=== PATIENT | female | born 1955 | race Caucasian/White ===

== ENCOUNTER 2016-12-02 22:57 | Inpatient (IN) | payer OTHER ==
[~2016-12-02] VITALS: Ht 167.6 cm; Wt 95.3 kg
[2016-12-02 23:05] VITALS: BP_SYST 118
[2016-12-02] MEDS ORDERED: NACL 0.9% 1,000 ML IV ONE (23:15)
[2016-12-02 23:57] LABS: BASOPHILS % (AUTO) 0.5 % (0.0-2.0); EOSINOPHILS # (AUTO) 0.1 K/uL (0.0-0.4); EOSINOPHILS % (AUTO) 1.6 % (0.0-4.0); HEMOGLOBIN 10.9 g/dL (12.0-16.0); LYMPHOCYTES # (AUTO) 0.9 K/uL (1.0-5.5); LYMPHOCYTES % (AUTO) 14.3 % (20.5-51.5); MEAN CORPUSCULAR HEMOGLOBIN 33 pg (27-31); MEAN CORPUSCULAR HGB CONC 33 % (32-36); MEAN CORPUSCULAR VOLUME 100 fL (79.0-98.0); MONOCYTES # (AUTO) 0.5 K/uL (0.0-1.0); MONOCYTES % (AUTO) 7.8 % (1.7-9.3); NEUTROPHILS % (AUTO) 75.8 % (40.0-70.0); PLATELET COUNT (AUTO) 172 K/uL (130-430); RED CELL DISTRIBUTION WIDTH 12.3 % (9.0-15.0); WHITE BLOOD COUNT (AUTO) 6.5 K/uL (4.8-10.8)
[2016-12-03] VITALS (7 sets, daily range): BP systolic 102–115
[2016-12-03 00:03] LABS: CALCIUM 8.8 mg/dL (8.4-11.0); CREATININE 1.33 mg/dL (0.55-1.30); POTASSIUM 4.1 mmol/L (3.5-5.1)
[2016-12-03 00:07] LABS: ALBUMIN 3.8 g/dL (3.4-4.8); TOTAL BILIRUBIN 0.5 mg/dL (0.0-1.0); TOTAL PROTEIN, SERUM 7.5 g/dL (6.4-8.3)
[2016-12-03 00:09] LABS: INR 0.9 (0.8-1.2)
[2016-12-03 01:27] LABS: BILIRUBIN,URINE 1+ (NEGATIVE); BLOOD, URINE 2+ (NEGATIVE); CLARITY/URINE SL CLOUDY (CLEAR); COLOR,URINE YELLOW (YELLOW); GLUCOSE,URINE NEGATIVE (NEGATIVE); KETONES,URINE NEGATIVE (NEGATIVE); LEUKOCYTE ESTERASE ,URINE 2+ (NEGATIVE); NITRITE, URINE NEGATIVE (NEGATIVE); PH,URINE 5.5 (5.0-8.0); PROTEIN URINE NEGATIVE (NEGATIVE); UROBILINOGEN,URINE 0.2 (0.2-1.0)
[2016-12-03 01:38] LABS: BACTERIA,URINE MANY /HPF (None Seen); MUCUS,URINE 1+ /LPF (None Seen)
[2016-12-03] MEDS ORDERED: ACETAMINOPHEN 500 MG TABLET PO ONE (02:00)
[2016-12-03] MEDS ORDERED: LEVOFLOXACIN 500 MG/D5W 100 ML IV ONE (02:15)
[2016-12-03] MEDS ORDERED: ASPIRIN 81 MG TAB.CHEW PO ONE (02:15)
[2016-12-03] MEDS ORDERED: ACETAMINOPHEN 325 MG TABLET PO PRN (03:15)
[2016-12-03] MEDS ORDERED: LISI10TA5 PO (04:01)
[2016-12-03] MEDS ORDERED: LOVA20TA2 PO (04:01)
[2016-12-03] MEDS ORDERED: LEVO200T8 PO (04:01)
[2016-12-03] MEDS ORDERED: OMEP40CA33 PO (04:02)
[2016-12-03] MEDS ORDERED: SERT-131 PO (04:02)
[2016-12-03] MEDS ORDERED: FEBU40TA PO (04:02)
[2016-12-03] MEDS ORDERED: ERGO500043 PO (04:03)
[2016-12-03] MEDS ORDERED: ALBU8.5H8 INH (04:03)
[2016-12-03] MEDS ORDERED: FURO-150 PO (04:04)
[2016-12-03] MEDS ORDERED: HYDR-551 PO (04:05)
[2016-12-03] MEDS ORDERED: L.RH1CAP PO (04:05)
[2016-12-03] MEDS ORDERED: POTASSIUM PO (04:06)
[2016-12-03] MEDS: 0.45% NACL 1,000 ML IV SCH ×2 (04:50→17:41)
[2016-12-03] MEDS ORDERED: *LOVENOX 1MG/KG Q12H/PHARMACY XX PRN (08:45)
[2016-12-03] MEDS ORDERED: ENOXAPARIN SODIUM 100 MG/ML SYRINGE SUBCUT SCH (09:00)
[2016-12-03] MEDS ORDERED: HYDROcodone/ACETAMIN 7.5-325 MG TAB PO PRN (09:30)
[2016-12-03] MEDS: ASPIRIN 81 MG TAB.CHEW PO SCH (10:11)
[2016-12-03] MEDS: HYDROcodone/ACETAMIN 7.5-325 MG TAB PO PRN ×3 (10:13→23:41)
[2016-12-03 10:20] LABS: BASOPHILS % (AUTO) 0.5 % (0.0-2.0); EOSINOPHILS # (AUTO) 0.1 K/uL (0.0-0.4); EOSINOPHILS % (AUTO) 1.3 % (0.0-4.0); HEMATOCRIT 32.5 % (36-48); MEAN CORPUSCULAR HEMOGLOBIN 34 pg (27-31); MEAN CORPUSCULAR HGB CONC 34 % (32-36); MEAN CORPUSCULAR VOLUME 100 fL (79.0-98.0); MONOCYTES # (AUTO) 0.5 K/uL (0.0-1.0); MONOCYTES % (AUTO) 11.8 % (1.7-9.3); NEUTROPHILS # (AUTO) 2.7 K/uL (1.8-7.7); NEUTROPHILS % (AUTO) 63.4 % (40.0-70.0); PLATELET COUNT (AUTO) 167 K/uL (130-430); RED BLOOD CELL COUNT(AUTO) 3.25 MIL/uL (4.2-6.2); RED CELL DISTRIBUTION WIDTH 12.6 % (9.0-15.0); WHITE BLOOD COUNT (AUTO) 4.3 K/uL (4.8-10.8)
[2016-12-03 10:32] LABS: THYROID STIMULATING HORMONE 0.34 uIu/mL (0.36-3.74)
[2016-12-03 10:32] LABS: BLOOD GAS PH 7.353 (7.350-7.450)
[2016-12-03 10:33] LABS: ABG TOTAL HEMOGLOBIN 11.2 G/dL (12.0-18.0); BLOOD GAS BASE EXCESS 4.4 mmol/L (-3.0-3.0); BLOOD GAS COHb% 0.3 % (0.5-1.5)
[2016-12-03 10:34] LABS: BLOOD GAS HHB 20.1 % (0.0-6.0)
[2016-12-03] MEDS: SIMVASTATIN 10 MG TABLET PO SCH (17:42)
[2016-12-04 00:03] VITALS: BP_SYST 106
[2016-12-04] MEDS: 0.45% NACL 1,000 ML IV SCH ×5 (03:15→21:37)
[2016-12-04 03:43] VITALS: BP_SYST 106
[2016-12-04 07:06] LABS: ANION GAP 5 (5-15); CALCIUM 8.7 mg/dL (8.4-11.0); CHLORIDE 103 mmol/L (98-107); CREATININE 0.99 mg/dL (0.55-1.30); GLUCOSE 105 mg/dL (70-99); POTASSIUM 4.5 mmol/L (3.5-5.1); SODIUM SERUM 141 mmol/L (136-145); UREA NITROGEN, BLOOD 17 mg/dL (8-21)
[2016-12-04 07:14] LABS: BASOPHILS % (AUTO) 0.5 % (0.0-2.0); EOSINOPHILS # (AUTO) 0.1 K/uL (0.0-0.4); EOSINOPHILS % (AUTO) 2.5 % (0.0-4.0); HEMATOCRIT 31.1 % (36-48); HEMOGLOBIN 10.3 g/dL (12.0-16.0); LYMPHOCYTES # (AUTO) 1.1 K/uL (1.0-5.5); LYMPHOCYTES % (AUTO) 23.7 % (20.5-51.5); MEAN CORPUSCULAR HEMOGLOBIN 33 pg (27-31); MEAN CORPUSCULAR HGB CONC 33 % (32-36); MEAN CORPUSCULAR VOLUME 100 fL (79.0-98.0); MONOCYTES # (AUTO) 0.5 K/uL (0.0-1.0); MONOCYTES % (AUTO) 10.8 % (1.7-9.3); NEUTROPHILS % (AUTO) 62.5 % (40.0-70.0); PLATELET COUNT (AUTO) 161 K/uL (130-430); RED BLOOD CELL COUNT(AUTO) 3.11 MIL/uL (4.2-6.2); RED CELL DISTRIBUTION WIDTH 12.7 % (9.0-15.0); WHITE BLOOD COUNT (AUTO) 4.7 K/uL (4.8-10.8)
[2016-12-04] MEDS: HYDROcodone/ACETAMIN 7.5-325 MG TAB PO PRN ×2 (07:14→17:49)
[2016-12-04] MEDS: LEVOTHYROXINE SODIUM 0.1 MG TABLET PO SCH (07:14)
[2016-12-04 07:15] LABS: ALANINE AMINOTRANSFERASE 52 U/L (12-78); ALBUMIN 3.6 g/dL (3.4-4.8); ASPARTATE AMINOTRANSFERASE 64 U/L (10-37); TOTAL BILIRUBIN 0.5 mg/dL (0.0-1.0); TOTAL PROTEIN, SERUM 6.9 g/dL (6.4-8.3)
[2016-12-04 07:24] LABS: GFR AFRICAN AMERICAN 74 mL/min (>90)
[2016-12-04 08:26] VITALS: BP_SYST 113
[2016-12-04] MEDS: LISINOPRIL 10 MG TABLET (PRINIVIL) PO SCH (09:40)
[2016-12-04] MEDS: ASPIRIN 81 MG TAB.CHEW PO SCH (09:40)
[2016-12-04] MEDS: OMEPRAZOLE 20 MG CAPSULE.DR (PriLOSEC) PO SCH (09:41)
[2016-12-04] MEDS: SERTRALINE HCL 50 MG TABLET PO SCH (09:41)
[2016-12-04] MEDS: LEVOFLOXACIN 500 MG/D5W 100 ML IV SCH (09:41)
[2016-12-04 11:24] VITALS: BP_SYST 117
[2016-12-04 15:51] VITALS: BP_SYST 103
[2016-12-04] MEDS: SIMVASTATIN 10 MG TABLET PO SCH (17:50)
[2016-12-04 20:00] VITALS: BP_SYST 122
[2016-12-04] MEDS: MORPHINE 2 MG/ML INJ. SYRINGE IVP PRN (21:34)
[2016-12-05 02:13] VITALS: BP_SYST 111
[2016-12-05 03:36] VITALS: BP_SYST 110
[2016-12-05] MEDS: 0.45% NACL 1,000 ML IV SCH (05:27)
[2016-12-05 06:02] LABS: BASOPHILS % (AUTO) 0.5 % (0.0-2.0); EOSINOPHILS # (AUTO) 0.1 K/uL (0.0-0.4); EOSINOPHILS % (AUTO) 2.9 % (0.0-4.0); HEMATOCRIT 31.9 % (36-48); HEMOGLOBIN 10.8 g/dL (12.0-16.0); LYMPHOCYTES # (AUTO) 1.1 K/uL (1.0-5.5); LYMPHOCYTES % (AUTO) 25.3 % (20.5-51.5); MEAN CORPUSCULAR HEMOGLOBIN 34 pg (27-31); MEAN CORPUSCULAR HGB CONC 34 % (32-36); MEAN CORPUSCULAR VOLUME 100 fL (79.0-98.0); MONOCYTES # (AUTO) 0.4 K/uL (0.0-1.0); MONOCYTES % (AUTO) 9.8 % (1.7-9.3); NEUTROPHILS # (AUTO) 2.8 K/uL (1.8-7.7); NEUTROPHILS % (AUTO) 61.5 % (40.0-70.0); PLATELET COUNT (AUTO) 175 K/uL (130-430); RED CELL DISTRIBUTION WIDTH 12.3 % (9.0-15.0); WHITE BLOOD COUNT (AUTO) 4.4 K/uL (4.8-10.8)
[2016-12-05] MEDS: LEVOTHYROXINE SODIUM 0.1 MG TABLET PO SCH (06:11)
[2016-12-05 06:13] LABS: ALBUMIN 3.6 g/dL (3.4-4.8); CALCIUM 9.6 mg/dL (8.4-11.0); CREATININE 0.94 mg/dL (0.55-1.30); POTASSIUM 4.5 mmol/L (3.5-5.1); TOTAL BILIRUBIN 0.4 mg/dL (0.0-1.0); TOTAL PROTEIN, SERUM 7.4 g/dL (6.4-8.3)
[2016-12-05 08:00] VITALS: BP_SYST 116
[2016-12-05] MEDS: ASPIRIN 81 MG TAB.CHEW PO SCH (08:11)
[2016-12-05] MEDS: LISINOPRIL 10 MG TABLET (PRINIVIL) PO SCH (08:11)
[2016-12-05] MEDS: SERTRALINE HCL 50 MG TABLET PO SCH (08:11)
[2016-12-05] MEDS: LEVOFLOXACIN 500 MG/D5W 100 ML IV SCH (08:11)
[2016-12-05] MEDS: OMEPRAZOLE 20 MG CAPSULE.DR (PriLOSEC) PO SCH (08:11)
[2016-12-05] MEDS: MORPHINE 2 MG/ML INJ. SYRINGE IVP PRN (08:19)
[2016-12-05 11:46] VITALS: BP_SYST 90
[2016-12-05 14:39] VITALS: BP_SYST 116
[2016-12-05 15:41] VITALS: BP_SYST 116
== END 2016-12-05 22:59 | disposition home or self-care (01) | DRG 47 ==
LOC: SED 22:57 → STU 12-03 03:11 → SMU 12-05 10:54
DX: G45.9 Transient cerebral ischemic attack, unspecified (principal); G93.41 Metabolic encephalopathy; I95.9 Hypotension, unspecified; Z99.81 Dependence on supplemental oxygen; J44.1 Chronic obstructive pulmonary disease with (acute) exacerbation; I25.2 Old myocardial infarction; N39.0 Urinary tract infection, site not specified; I10 Essential (primary) hypertension; E03.9 Hypothyroidism, unspecified; F32.9 Major depressive disorder, single episode, unspecified; M19.90 Unspecified osteoarthritis, unspecified site; Z96.653 Presence of artificial knee joint, bilateral; Z90.49 Acquired absence of other specified parts of digestive tract; I20.9 Angina pectoris, unspecified; G89.4 Chronic pain syndrome; Z87.891 Personal history of nicotine dependence; Z79.899 Other long term (current) drug therapy; Z90.710 Acquired absence of both cervix and uterus
CPT/HCPCS: 36415; 36600; 71010; 76700-TC; 80053; 81000-TC; 82803-TC; 83605; 84443-TC; 84484; 85025; 85610-TC; 85730-TC; 87040-TC; 87081; 87086; 87186-TC; 93005; 93306; 96361; 96365; 99285; J1650; J1956; J2270; J7030

== ENCOUNTER 2017-07-23 11:48 | Emergency (ER) | payer OTHER ==
[~2017-07-23] VITALS: Ht 167.6 cm; Wt 117.9 kg
[2017-07-23 11:48] VITALS: BP_SYST 143
[~2017-07-23 11:48] MED LIST: ALBU8.5H8 INH; ERGO500043 PO; FEBU40TA PO; FURO-150 PO; HYDR-551 PO; L.RH1CAP PO; LEVO200T8 PO; LISI10TA5 PO; LOVA20TA2 PO; OMEP40CA33 PO; POTASSIUM PO; SERT-131 PO
--- NOTE | 2017-07-23 11:50 | NUR ---
Patient triaged and placed in waiting room. VSS and patient appears in no acute distress at this time. Accompanied by SPOUSE, awaiting available bed, and MD notified of need for MSE.
--- NOTE | 2017-07-23 11:50 | NUR ---
Note undone in EDM - 07/23/17 at 1420 by PARTH Patient triaged and placed in waiting room. VSS and patient appears in no acute distress at this time. Accompanied by FATHER , awaiting available bed, and MD notified of need for MSE.
[2017-07-23 12:50] LABS: BASOPHILS # (AUTO) 0.1 K/uL (0.0-0.2); BASOPHILS % (AUTO) 1.3 % (0.0-2.0); EOSINOPHILS # (AUTO) 0.1 K/uL (0.0-0.4); EOSINOPHILS % (AUTO) 1.4 % (0.0-4.0); HEMATOCRIT 37.2 % (36-48); HEMOGLOBIN 12.6 g/dL (12.0-16.0); LYMPHOCYTES # (AUTO) 1.1 K/uL (1.0-5.5); LYMPHOCYTES % (AUTO) 12.3 % (20.5-51.5); MEAN CORPUSCULAR HEMOGLOBIN 35 pg (27-31); MEAN CORPUSCULAR HGB CONC 34 % (32-36); MEAN CORPUSCULAR VOLUME 102 fL (79.0-98.0); MONOCYTES # (AUTO) 0.5 K/uL (0.0-1.0); MONOCYTES % (AUTO) 5.2 % (1.7-9.3); NEUTROPHILS # (AUTO) 6.9 K/uL (1.8-7.7); NEUTROPHILS % (AUTO) 79.8 % (40.0-70.0); PLATELET COUNT (AUTO) 186 K/uL (130-430); RED BLOOD CELL COUNT(AUTO) 3.65 MIL/uL (4.2-6.2); RED CELL DISTRIBUTION WIDTH 15.1 % (9.0-15.0); WHITE BLOOD COUNT (AUTO) 8.7 K/uL (4.8-10.8)
[2017-07-23 12:55] LABS: CREATININE 1.06 mg/dL (0.55-1.30); POTASSIUM 3.5 mmol/L (3.5-5.1)
[2017-07-23 12:59] LABS: PROTHROMBIN TIME 9.9 SECS (9.5-12.5)
[2017-07-23 13:00] LABS: ALBUMIN 4.2 g/dL (3.4-4.8); TOTAL BILIRUBIN 0.6 mg/dL (0.0-1.0)
--- NOTE | 2017-07-23 14:01 | NUR ---
BROUGHT BACK TO BED #4 AND REPORT GIVEN TO NURSE
--- NOTE | 2017-07-23 14:20 | NUR ---
DR RODRIGUEZ AT BEDSIDE FOR EVALUATION
[2017-07-23 14:56] VITALS: BP_SYST 137
--- NOTE | 2017-07-23 15:00 | NUR ---
Patient given written and verbal discharge instructions and verbalizes understanding. ER MD discussed with patient the results and treatment provided. Patient in stable condition. ID arm band removed. Rx of TRAMADOL0/10 given. Patient educated on pain management and to follow up with PMD. Pain Scale 0/10 Opportunity for questions provided and answered. Medication side effect fact sheet provided.
== END 2017-07-23 14:56 | disposition home or self-care (01) ==
LOC: SED 11:48
DX: G89.29 Other chronic pain (principal); M25.572 Pain in left ankle and joints of left foot; R03.0 Elevated blood-pressure reading, without diagnosis of hypertension; K21.9 Gastro-esophageal reflux disease without esophagitis; I10 Essential (primary) hypertension; M10.9 Gout, unspecified; Z90.710 Acquired absence of both cervix and uterus; Z96.659 Presence of unspecified artificial knee joint; Z79.899 Other long term (current) drug therapy
CPT/HCPCS: 36415; 80053; 85025; 85379; 85610-TC; 85730-TC; 93005; 93971; 99285